=== PATIENT | female | born 1965 | race Caucasian/White ===

== ENCOUNTER → 2020-06-20 10:41 | Outpatient (CLI) | payer MEDICARE, BC, SELFPAY ==
--- NOTE | ~2020-06-20 | XR_ITS ---
EXAMINATION: XR chest 2V DATE: 06/20/2020 11:23 INDICATION: Cough, actinomycotic infection TECHNIQUE: Frontal and lateral views of the chest are obtained COMPARISON: 12/18/2010 FINDINGS: The lungs are free of acute opacities. There is no pleural effusion or pneumothorax. The ca rdiomediastinal silhouette is normal. There is mild thoracic spondylosis. Surgical clips in the right upper quadrant are likely from prior cholecystectomy. IMPRESSION: 1. No acute cardiopulmonary abnormality. Reviewed, dictated and finalized at location A.
== END ==
PROVIDERS: PCP Family Medicine; Visit Provider Internal Medicine Infectious Disease
DX: A42.9 Actinomycosis, unspecified (principal)
CPT/HCPCS: 71046

== ENCOUNTER → 2020-10-28 13:51 | Outpatient (CLI) | payer MEDICARE, BC, SELFPAY ==
--- NOTE | ~2020-10-28 | XR_ITS ---
XR skull min 4V DATE: 10/28/2020 14:23 INDICATION: Pain, knot TECHNIQUE: 4 views COMPARISON: None FINDINGS: There is left temporal mandibular joint replacement. No skull fracture or bone destruction is detected. Normal sella turcica. Carotid siphon internal betancourt tid artery calcification is noted overlying the sella turcica. Paranasal sinuses appear normally deve loped and aerated. IMPRESSION: No skull fracture or bone destruction Status post left temporal mandibular joint replacement Reviewed, dictated and finalized at location A.
== END ==
PROVIDERS: PCP Physician Assistant Medical; Visit Provider Physician Assistant Medical
DX: Z96.698 Presence of other orthopedic joint implants (principal)
CPT/HCPCS: 70260

== ENCOUNTER 2021-04-08 13:41 | Emergency (ER) | payer MEDICARE, BC, SELFPAY ==
--- NOTE | ~2021-04-08 | XR_ITS ---
EXAMINATION: XR knee LT 3V DATE: 04/08/2021 15:27 INDICATION: Left knee pain and swelling TECHNIQUE: Anteroposterior, oblique and crosstable lateral views of the left knee were obtained COMPARISON: None. FINDINGS: Alignment of the left knee is normal. No fracture. Osteoarthritis with at least mild joint space lachelle rowing in the medial compartment joint space narrowing can be underestimated on nonweightbearing imag ing. Heterotopic ossification at the medial epicondyle consistent with Radha-Stieda lesion relat ed to chronic tear of the medial collateral ligament. Moderate-sized left knee joint effusion without layering lipohemarthrosis. Soft tissues are unremarkable. IMPRESSION: 1. Moderate-sized left knee joint effusion. No acute osseous abnormality. 2. Relatively stable lesion with heterotopic calcific lesion at the origin of the medial collateral l igament consistent with chronic sprain. 2. At least mild osteoarthritis in the medial compartment. Reviewed, dictated and finalized at location A. ERY PAIRER IMPRESSION: 1. Moderate-sized left knee joint effusion. No acute osseous abnormality. 2. Relatively stable lesion with heterotopic calcific lesion at the origin of t he medial collateral ligament consistent with chronic sprain. 2. At least mild osteoarthritis in the medial compartment.
[2021-04-08 14:11] VITALS: BP 117/56; PULSE 90; RESP 15; TEMP 36.6; O2SAT 100
--- NOTE | 2021-04-08 15:13 | ED.EXTPRO ---
HPI - Extremity Problem General Chief complaint: Extremity Problem,Nontraumatic Stated complaint: knee pain Time Seen by Provider: 04/08/21 14:58 Source: patient Mode of arrival: wheelchair Limitations: no limitations History of Present Illness HPI Narrative: 55-year-old female presents with left knee pain and swelling that has been increasing over the past week. Patient denies any trauma or injury to the area. Patient has a history of psoriatic arthritis. Patient denies fevers. No other complaints MD Complaint: extremity pain and extremity swelling Onset (ago): week(s) (1) Location: left Related Data Allergies Allergy/AdvReac Type Severity Reaction Status Date / Time Sulfa (Sulfonamide Allergy Itching Verified 04/08/21 14:54 Antibiotics) Review of Systems Review of Systems: All systems reviewed & are unremarkable except as noted in HPI and below Constitutional: Constitutional: Reports no additional constitutional complaints Eyes: Eyes: Reports no additional eye complaints ENT: Reports system reviewed and no additional complaints, except as documented Cardiovascular: Cardiovascular: Reports no additional cardiovascular complaints Respiratory: Respiratory: Reports no additional respiratory complaints Gastrointestinal: Gastrointestinal: Reports no additional gastrointestinal complaints Genitourinary: Genitourinary: Reports no additional female genitourinary complaints Musculoskeletal: Musculoskeletal: Reports arthralgias and Reports joint swelling Integumentary/Breasts: Skin/Breast: Reports system reviewed and no additional complaints, except as docu Neurologic: Reports system reviewed and no additional complaints, except as documented Psychiatric: Psychiatric: Reports no additional psychiatric complaints Endocrine: Endocrine: Reports no additional endocrine complaints Hematologic/Lymphatic: Hematologic/Lymphatic: Reports no additional hematologic/lymphatic complaints Allergic/Immunologic: Allergic/Immunologic: Reports no additional allergic/immunologic complaints Exam Narrative: General appearance: Well-developed, well-nourished Skin: Normal color Head: Normocephalic, nontraumatic Eyes: Clear conjunctiva ENT: Oropharynx normal, ears normal, nose normal Neck: Supple, nontender Chest and respiratory: Airway patent, no respiratory distress, no accessory muscle use Heart: Regular rate/rhythm Abdomen: Soft, nontender, no organomegaly, quiet bowel sounds Vascular: Normal peripheral pulses, normal capillary refill. Musculoskeletal: Obvious left knee swelling, decreased range of motion left knee not warm to touch or redness Neurologic: Alert and oriented ?3, [employer]ANKS is normal as tested, no gross motor deficit Course Course Emergency Course: X-rays negative. Will discharge home patient patient requesting prednisone related to arthritis flare. Patient states [facility] will follow up with her. Vital Signs Vital signs: Vital Signs Temperature 36.6 C 04/08/21 14:11 Pulse Rate 90 04/08/21 14:11 Respiratory Rate 15 04/08/21 14:11 Blood Pressure 117/56 L 04/08/21 14:11 Pulse Oximetry 100 04/08/21 14:11 Temperature 36.6 C 04/08/21 14:11 Pulse Rate 90 04/08/21 14:11 Respiratory Rate 15 04/08/21 14:11 Blood Pressure 117/56 L 04/08/21 14:11 Pulse Oximetry 100 04/08/21 14:11 MDM - Extremity (Nontraumatic) MDM Narrative Medical decision making narrative: Arthritis versus joint effusion Discharge Plan Discharge Clinical Impression: Effusion of knee joint, left Patient Disposition: Home, Self-Care Condition: Stable Instructions: Antibiotic Form, Swollen Knee Joint (ED) Add
[2021-04-08] MEDS: traMADol HCL (*CRX) 50 MG TABLET PO (15:34)
[2021-04-08 16:27] VITALS: BP 103/68; PULSE 59; RESP 12; O2SAT 100
== END 2021-04-08 16:31 | disposition home or self-care (01) ==
LOC: ANHED 16:24
PROVIDERS: Emergency Provider Nurse Practitioner Family; PCP Family Medicine
DX: M25.462 Effusion, left knee (principal)
CPT/HCPCS: 73562; 99283; A9270

== ENCOUNTER → 2022-10-02 12:03 | Outpatient (CLI) | payer MEDICARE, SELFPAY ==
--- NOTE | ~2022-10-02 | XR_ITS ---
EXAM: XR knee RT 3V DATE: 10/02/2022 12:49 HISTORY: KNEE PAIN, RIGHT . COMPARISON: None available. FINDINGS: Normal mineralization. No fracture or dislocation. No lytic or blastic lesion. Severe medi al joint space narrowing. Mild and moderate tricompartmental osteophytosis. Moderate volume joint flu id. No erosion or periosteal change. Soft tissues within normal limits. IMPRESSION: Tricompartmental right knee osteoarthritis, severe in the medial compartment. Moderate kn ee joint effusion. Reviewed, dictated and finalized at location K. IMPRESSION: Tricompartmental right knee osteoarthritis, severe in the medial co mpartment. Moderate knee joint effusion.
== END ==
PROVIDERS: PCP Physician Assistant Medical; Visit Provider Nurse Practitioner
DX: M17.11 Unilateral primary osteoarthritis, right knee (principal)
CPT/HCPCS: 73562

== ENCOUNTER 2023-01-01 09:45 | Emergency (ER) | payer MEDICARE, BC, SELFPAY ==
[2023-01-01] VITALS (27 sets, daily range): BP systolic 100–150; BP diastolic 65–87; PULSE 89–128; RESP 12–22; TEMP 36.3; O2SAT 100
--- NOTE | ~2023-01-01 | CT_ITS ---
EXAMINATION: CT abdomen pelvis w con DATE: 01/01/2023 10:48 INDICATION: Nausea and vomiting. Diarrhea. TECHNIQUE: Computed tomography (CT) of the abdomen and pelvis was performed with 100 mL Omnipaque 350 intravenous contrast. Automated exposure control and iterative reconstruction technique were employe d. The dose-length product was 1224.49 mGy-cm. COMPARISON: None. FINDINGS: The visualized portions of the lung bases demonstrate minimal atelectasis. No pleural effus ion. The heart size is normal. There are coronary artery calcifications. No pericardial effusion. The re are bilateral breast implants. The liver and gallbladder are normal. There are changes of cholecys tectomy. The pancreas, adrenal glands, and kidneys are normal. There is calcified atherosclerosis of the aorta and many of the other arteries. There are no dilated loops of bowel. The appendix is normal . There are no pathologically enlarged lymph nodes. There is a small sliding hiatal hernia. There is no free intraperitoneal fluid. There is a 2.9 x 0.4 x 0.8 cm left perianal abscess. There is a 4.8 x 1.6 x 1.4 cm left perianal abscess. There is a 1.9 x 0.8 x 0.8 cm left perianal abscess. There is cur vilinear material in the left perianal region from prior surgery. There are changes of anterior fusi on procedure at L4-L5. There is mild thoracic spondylosis and moderate lumbar spondylosis. IMPRESSION: 1. Left perianal abscesses. Reviewed, dictated and finalized at location A. LABORER IMPRESSION: 1. Left perianal abscesses.
[2023-01-01 10:17] LABS: Basophils Percent Auto 0.1 % (0.2-1.2); Eosinophils Percent Auto 0.4 % (0-4.4); Hematocrit 35.8 % (37.0-47.0); Hemoglobin 11.5 g/dL (12.0-15.0); Immature Granulocyte Absolute 0.03 K/mm3 (0.00-0.031); Immature Granulocyte Percent A 0.3 % (0-0.5); Lymphocytes Absolute Auto 0.77 K/mm3 (0.9-3.2); Lymphocytes Percent Auto 7.1 % (18.3-44.2); Mean Corpuscular HGB Conc 32.1 g/dl (32-36); Mean Corpuscular Hemoglobin 27.3 pg (26-34); Mean Platelet Volume 9.1 fl (7.4-10.4); Monocytes Absolute Auto 0.4 K/mm3 (0.1-0.6); Monocytes Percent Auto 3.9 % (2.6-8.5); Neutrophils Absolute Auto 9.5 K/mm3 (1.3-6.7); Neutrophils Percent Auto 88.2 % (45.5-73.1); Platelet Count Result 356 k/mm3 (150-375); Red Blood Count 4.21 M/mm3 (4.2-5.4); Red Cell Distribution Width 16.1 % (11.5-14.5); White Blood Count 10.8 K/mm3 (4.5-10.0)
[2023-01-01] MEDS: SODIUM CHLORIDE 0.9% IV 2,000 ML 999 ML IV CONT (10:25)
[2023-01-01 10:28] LABS: Alanine Aminotransferase 21 U/L (6-35); Albumin Level 4.4 g/dL (3.5-5.1); Alkaline Phosphatase 109 U/L (38-126); Anion Gap 16 mmol/L (8-16); Aspartate Amino Transferase 31 U/L (14-36); Bilirubin,Total 0.9 mg/dL (0.2-1.3); Blood Urea Nitrogen 23 mg/dL (7-17); Calcium 9.8 mg/dL (8.4-10.2); Carbon Dioxide 20 mmol/L (22-30); Chloride 98 mmol/L (98-107); Estimated CRCL calculation 42 ml/min; Estimated Glomerular Filt Rate 36; Glucose 89 mg/dL (65-110); Lipase 55 U/L (23-300); Potassium 4.5 mmol/L (3.4-5.0); Sodium 134 mmol/L (137-145)
--- NOTE | 2023-01-01 10:49 | ED.NAVMDI ---
HPI - Nausea/Vomiting/Diarrhea General Chief complaint: Nausea/Vomiting/Diarrhea Stated complaint: Vomitting diarrhea, chills Time Seen by Provider: 01/01/23 09:55 History of Present Illness HPI Narrative: 57 year old female with recent surgery at [facility] for perirectal abscess presents today for concerns of dehydration, n, v,d. She was first noted to have a perirectal abscess About 18 months ago and has had intermittent issues since then. Last surgery was about 1 month ago. She has to what she calls the clamps and to keep the abscess open and continues to drain. She was sent to use the ER yesterday for by her surgeon where she waited for 6 hours but then was told that it would be a long time for bed and decided to go home. She arrives today with concerns for dehydration and increased pain to the rectal area. Patient is on oxycodone at home without relief. Denies any fevers, body aches, chills. Does continue to have drainage from the rectal abscess. Related Data Allergies Allergy/AdvReac Type Severity Reaction Status Date / Time hydromorphone [From Dilaudid] Allergy Difficulty Verified 01/01/23 09:58 Breathing infliximab [From Remicade] Allergy Difficulty Verified 01/01/23 09:58 Breathing ketamine Allergy Difficulty Verified 01/01/23 09:58 Breathing morphine Allergy Difficulty Verified 01/01/23 09:58 Breathing Sulfa (Sulfonamide Allergy Itching Verified 01/01/23 09:58 Antibiotics) Review of Systems Review of Systems: All systems reviewed & are unremarkable except as noted in HPI and below Exam Const: General: cooperative, healthy appearing, comfortable, no acute distress and well developed Orientation/consciousness: patient oriented x3 HENMT: Head: normal to inspection Eyes: General: appearance normal, both eyes and all related structures Resp: Effort & Inspection: normal respiratory effort and able to speak in complete sentences Auscultation: clear to auscultation bilaterally Cardio: Rate: regular rate Rhythm: regular rhythm Heart sounds: S1 normal heart sound present and S2 normal heart sound present GI: Other: Visual rectal exam done. Three blue tented plastic apparatus is noted to the rectal area which patient states was put in by her surgeon to keep the abscess opened. Purulent drainage noted. No bleeding. Neuro: General: patient oriented x3 Course Course Emergency Course: Patient given IV fluids with the increase in blood pressure noted a decrease in pulse. Fentanyl use for pain as patient is allergic to Dilaudid and morphine. Patient is feeling improved and able to rest at this time. After multiple conversations to talk to [facility] and patient to be transferred as a direct admit. Patient and up-to-date on plan of care in agreement Consultations Consultation #1: [facility] called. states patient is currently on the wait list for bed at [facility], Awaiting call back from hospitalist. imaging pushed over to [facility]. Date: 01/01/23 Time: 11:53 Consultation #2: Multiple conversations had with slow. One conversation with hospitalist said will accept patient is of surgery does. Talked to resident surgeon Etta at 3:12 p[address] to was read CT results are reviewed labs. Return phone call received around 15 50 with notification of patient having room available for direct admit. Date: 01/01/23 Time: 15:50 Vital Signs Vital signs: Vital Signs Temperature 97.4 F L 01/01/23 09:51 Pulse Rate 128 H 01/01/23 09:51 Respiratory Rate 16 01/01/23 09:51 Blood Pressure 100/65 01/01/23 09:51 Pulse Oximetry 100 01/01/23 09:51 Temperature 97.4 F L 01/01/23 09:51 Pulse Rate 91 01/01/23 15:01 Respiratory Rate 19 01/01/23 15:01 Blood Pressure 119/66 01/01/23 15:01 Pulse Oximetry 100 01/01/23 13:10 [facility] Transfered to[facility] MDM - Nausea/Vomiting/Diarrhea MDM Narrative Medical decision making narrative: 57-year-old fem
[2023-01-01] MEDS: fentaNYL CITRATE INJ (*CRX) 100 MCG/2 ML VIAL 50 MCG IV PUSH (11:59)
[2023-01-01 12:31] LABS: Appearance Urine Cloudy (Clear); Bacteria Urine None Seen /hpf; Bilirubin Urine Negative (Negative); Blood Urine 1+ (Negative); Color Urine Yellow (Yellow); Glucose Urine UA Negative (Negative); Ketones Urine Trace mg/dL (Negative); Leukocyte Esterase Ur 2+ LEU/UL (Negative); Need Manual Microscopic Reviewed; Nitrate Urine Negative (Negative); Protein Urine Negative (Negative); Specific Grav Ur 1.026 (1.001-1.035); Squamous Epithelial Cell Urine Moderate /hpf (Few); Urobilinogen Urine 0.2 mg/dL (<2.0); WBC Urine 51-100 /hpf
[2023-01-01 12:33] LABS: Add Urine Microscopic? YES
[2023-01-01] MEDS: LACTATED RINGERS 1,000 ML 999 ML IV CONT (12:57)
[2023-01-01 13:35] LABS: Prothrombin Time 13.6 Seconds (11.1-14.7)
[2023-01-01 13:36] LABS: Partial Thromboplastin Time 21.5 SECONDS (22.3-36.8)
[2023-01-01 13:37] LABS: Lactic Acid Reflex 0.8 mmol/L (0.7-2.0)
[2023-01-01] MEDS: LACTATED RINGERS 1,000 ML 150 ML IV CONT (13:55)
[2023-01-01] MEDS: fentaNYL CITRATE INJ (*CRX) 100 MCG/2 ML VIAL IV PUSH ×2 (13:56→16:41)
--- NOTE | 2023-01-01 16:00 | PC.NURSE ---
1554 ALS - [facility] declined transfer to [facility] Rm #[id number] ALS - [facility] accepted transfer to [facility] Rm #[id number]
[2023-01-01] MEDS: ONDANSETRON INJ 4 MG/2 ML VIAL IV PUSH (16:48)
[2023-01-01 19:54] LABS: CRP 7.9 mg/dL (<1.0)
== END 2023-01-01 16:47 | disposition short-term general hospital (02) ==
PROVIDERS: Emergency Provider Nurse Practitioner Family; PCP Physician Assistant Medical
DX: K61.1 Rectal abscess (principal); N17.9 Acute kidney failure, unspecified; E86.0 Dehydration; R82.998 Other abnormal findings in urine
CPT/HCPCS: 36415; 74177; 80053; 81001; 81025; 83605; 83690; 85025; 85610; 85730; 86140; 87040; 87086; 87147; 87181; 87186; 96361; 96374; 96375; 96376; 99285; J2405; J3010; J7030; J7120; Q9967

== ENCOUNTER 2023-02-06 09:26 | Emergency (ER) | payer MEDICARE, BC, SELFPAY ==
--- NOTE | ~2023-02-06 | CT_ITS ---
EXAMINATION: CT abdomen pelvis w con DATE: 02/06/2023 12:32 INDICATION: Perirectal abscess TECHNIQUE: Computed tomography (CT) of the abdomen and pelvis was performed with 100 CC Omnipaque 350 intravenous contrast. Automated exposure control and iterative reconstruction technique were employe d. Exam dose: 935.44 mGy-cm total exam DLP. COMPARISON: 01/01/2023 CT abdomen pelvis FINDINGS: There is interval improvement of 2 out of 3 left perianal abscesses since 01/01/2023. The m ost superiorly situated left perianal abscess cavity appears stable since 01/01/2023. Aneurysm surgical radiopaque material or drain since in this area. The urinary bladder is evacuated. Status post hysterectomy. Bilateral breast implants. Normal heart size. No pericardial or pleural effusion. The lung bases are clear. Diffuse hepatic steatosis. No hepatic, splenic, pancreatic, and adrenal or renal space-occupying mass lesion is evident. There is atherosclerotic calcification but normal caliber of the abdominal aorta. No intraperitoneal or retroperitoneal or pelvic mass lesion or adenopathy or ascites. Small sliding hiatal hernia. Normal appendix. No bowel obstruction or intraperitoneal free air. Status post anterior and interbody spinal surgical fusion at L4-5. IMPRESSION: Interval improvement of 2 of 3 left perirenal abscess since 01/01/2023 Reviewed, dictated and finalized at Location A. Reviewed, dictated and finalized at location A. MAKER APPRENTICE IMPRESSION: Interval improvement of 2 of 3 left perirenal abscess since 2022
[2023-02-06 09:37] VITALS: BP 103/66; PULSE 90; RESP 16; O2SAT 100
[2023-02-06 10:49] VITALS: BP 131/55; PULSE 87; RESP 16; O2SAT 100
[2023-02-06 11:01] VITALS: BP 129/61; O2SAT 100
--- NOTE | 2023-02-06 11:24 | PC.NURSE ---
Pt made aware urine specimen needed. Pt asked for more time.
[2023-02-06 11:26] LABS: Basophils Percent Auto 0.2 % (0.2-1.2); Eosinophils Percent Auto 0.2 % (0-4.4); Hematocrit 37.4 % (37.0-47.0); Hemoglobin 11.6 g/dL (12.0-15.0); Immature Granulocyte Absolute 0.01 K/mm3 (0.00-0.031); Immature Granulocyte Percent A 0.2 % (0-0.5); Lymphocytes Absolute Auto 0.72 K/mm3 (0.9-3.2); Lymphocytes Percent Auto 12.5 % (18.3-44.2); Mean Corpuscular Hemoglobin 26.1 pg (26-34); Mean Platelet Volume 9.7 fl (7.4-10.4); Monocytes Absolute Auto 0.7 K/mm3 (0.1-0.6); Neutrophils Absolute Auto 4.3 K/mm3 (1.3-6.7); Neutrophils Percent Auto 74.9 % (45.5-73.1); Platelet Count Result 341 k/mm3 (150-375); Red Blood Count 4.45 M/mm3 (4.2-5.4); Red Cell Distribution Width 16.9 % (11.5-14.5); White Blood Count 5.8 K/mm3 (4.5-10.0)
[2023-02-06 11:31] VITALS: BP 132/70; O2SAT 100
[2023-02-06 11:38] LABS: Alanine Aminotransferase 49 U/L (6-35); Albumin Level 4.1 g/dL (3.5-5.1); Alkaline Phosphatase 94 U/L (38-126); Anion Gap 9 mmol/L (8-16); Aspartate Amino Transferase 65 U/L (14-36); Bilirubin,Total 1.4 mg/dL (0.2-1.3); Blood Urea Nitrogen 9 mg/dL (7-17); Carbon Dioxide 26 mmol/L (22-30); Chloride 104 mmol/L (98-107); Estimated CRCL calculation 95 ml/min; Estimated Glomerular Filt Rate > 60; Glucose 103 mg/dL (65-110); Lipase 128 U/L (23-300); Potassium 3.6 mmol/L (3.4-5.0); Sodium 139 mmol/L (137-145)
[2023-02-06 12:01] VITALS: BP 116/59; O2SAT 100
--- NOTE | 2023-02-06 12:05 | ED.ABDPAIN ---
HPI - Abdominal Pain General Chief Complaint: Abdominal Pain Stated Complaint: unable to eat or drink, rectal pain Time Seen by Provider: 02/06/23 10:43 Source: patient and RN notes reviewed Mode of arrival: ambulatory Limitations: no limitations History of Present Illness HPI narrative: This is a 57 year old female with history of chronic GI issues, perianal abscess who presents for evaluation of worsening rectal pain. PAtient states she has been dealing with perianal abscess for 3-4 months. [facility] of an abscess at that time. She states she has been having worsening rectal pain for a few days. She states she has spoken to her colorectal surgeon. They wanted to get CT but they are unable to get or see her until . She denies fever, chills. She states she has issues with nausea and vomiting since november. She states she is only able to eat 500 calories per day. Related Data Home Medications Medication Instructions Recorded Confirmed apremilast 30 mg tablet (Otezla) mg PO 02/06/23 estradiol 0.05 mg/24 hr weekly 02/06/23 transdermal patch folic acid 1 mg tablet 02/06/23 hydrochlorothiazide 12.5 mg tablet mg 02/06/23 levothyroxine 137 mcg tablet mcg 02/06/23 02/06/23 oxycodone 5 mg tablet mg 02/06/23 potassium chloride 10 mEq meq PO 02/06/23 tablet,extended release sucralfate 1 gram tablet 02/06/23 Allergies Allergy/AdvReac Type Severity Reaction Status Date / Time hydromorphone [From Dilaudid] Allergy Difficulty Verified 02/06/23 10:26 Breathing infliximab [From Remicade] Allergy Difficulty Verified 02/06/23 10:26 Breathing ketamine Allergy Difficulty Verified 02/06/23 10:26 Breathing morphine Allergy Difficulty Verified 02/06/23 10:26 Breathing Sulfa (Sulfonamide Allergy Itching Verified 02/06/23 10:26 Antibiotics) Review of Systems Constitutional: Constitutional: Denies weakness Cardiovascular: Cardiovascular: Denies syncope, Denies rapid heart rate, Denies irregular heart rhythm, Denies leg edema and Denies dyspnea Respiratory: Respiratory: Denies chest congestion, Denies hemoptysis, Denies excessive phlegm production and Denies dyspnea Gastrointestinal: Gastrointestinal: Reports abdominal pain, Denies hematochezia, Denies diarrhea, Reports nausea and Reports vomiting Genitourinary: Genitourinary: Denies hematuria and Denies dysuria Musculoskeletal: Musculoskeletal: Denies joint swelling, Denies loss of height and Denies muscle weakness Neurologic: Denies syncope, Denies focal weakness and Denies weakness PMFSH Past Medical History Medical History (Updated 02/06/23 @ 16:15 by Geni Chan MD) Arthritis Hypertension Hypothyroid Surgical History Surgical History (Updated 02/06/23 @ 14:13 by Geni Chan MD) History of incision and drainage Social History Social History (Updated 02/06/23 @ 14:13 by Geni Chan MD) Smoking status: Smoker, status unknown Exam Const: General: no acute distress and alert Nutritional Appearance: well nourished and obese Orientation/consciousness: patient oriented x3 HENMT: Head: normal to inspection Neck: Neck: normal visual inspection Resp: Effort & Inspection: normal respiratory effort Auscultation: clear to auscultation bilaterally Cardio: Rate: regular rate Rhythm: regular rhythm Heart sounds: no murmurs GI: GI Palp: Yes Soft to palpation, Yes Tenderness to palpation present (GI) (mild suprapubic), No Guarding due to palpation present (GI) and No Rigid due to palpation Auscultation: normal bowel sounds Other: left superior perianal tenderness, there are blue clips in place perirectally with purulent drainage coming out. Neuro: General: patient oriented x3, moves all extremities and CN's II-XI intact bilaterally Extrem: General: normal to inspection Psych: Mental Status: mental status grossly normal Affect: normal affect Attitude: co
[2023-02-06] MEDS: ONDANSETRON INJ 4 MG/2 ML VIAL IV PUSH (12:37)
[2023-02-06] MEDS: fentaNYL CITRATE INJ (*CRX) 100 MCG/2 ML VIAL 50 MCG IV PUSH (12:37)
[2023-02-06] MEDS: LACTATED RINGERS 1,000 ML 999 ML IV CONT (12:38)
[2023-02-06 13:03] LABS: Appearance Urine Turbid (Clear); Bacteria Urine Rare /hpf; Bilirubin Urine Negative (Negative); Blood Urine Negative (Negative); Budding Yeast Urine Present /hpf; Color Urine Yellow (Yellow); Glucose Urine UA Negative (Negative); Ketones Urine 2+ mg/dL (Negative); Leukocyte Esterase Ur 2+ LEU/UL (Negative); Need Manual Microscopic Reviewed; Nitrate Urine Negative (Negative); Non Pathogenic Casts 0-2; Protein Urine Trace mg/dL (Negative); RBC Urine 21-50 /hpf (0-2); Specific Grav Ur 1.017 (1.001-1.035); Squamous Epithelial Cell Urine Many /hpf (Few); Urobilinogen Urine 0.2 mg/dL (<2.0); WBC Urine 21-50 /hpf; pH Urine 8.5 (5.0-9.0)
[2023-02-06 13:05] LABS: Add Urine Microscopic? YES
--- NOTE | 2023-02-06 16:24 | PC.NURSE ---
Pt and did not want to wait for EMS arrival because EMS was later than the anticipated ETA. Pt made aware and educated on the risks of leaving.
--- NOTE | 2023-02-06 16:38 | PC.NURSE ---
Report called to [facility] @[id number]. Pt made decision @[id number] she no longer wanted to wait and wanted to transport herself via personal car. Report called back to [facility] @[facility] [id number]
== END 2023-02-06 16:46 | disposition short-term general hospital (02) ==
PROVIDERS: Emergency Provider General Practice; PCP Physician Assistant Medical
DX: K61.0 Anal abscess (principal); M19.90 Unspecified osteoarthritis, unspecified site; I10 Essential (primary) hypertension; E03.9 Hypothyroidism, unspecified; R82.998 Other abnormal findings in urine
CPT/HCPCS: 36415; 74177; 80053; 81001; 83690; 83735; 85025; 87086; 87088; 96361; 96374; 96375; 99284; J2405; J3010; J7120; Q9967